=== PATIENT | female | born 1990 | race Caucasian/White ===

== ENCOUNTER 2018-11-05 10:16 | Emergency (ER) | payer BC ==
[~2018-11-05] VITALS: Ht 157.5 cm; Wt 86.2 kg
[2018-11-05 10:21] VITALS: Ht 157.5 cm; Wt 86.2 kg
[2018-11-05 13:17] VITALS: BP 111/63
== END 2018-11-05 13:17 | disposition home or self-care (01) ==
LOC: ED 10:16
DX: L03.116 Cellulitis of left lower limb (principal); F17.210 Nicotine dependence, cigarettes, uncomplicated; J45.909 Unspecified asthma, uncomplicated; Z88.6 Allergy status to analgesic agent; Z88.8 Allergy status to other drugs, medicaments and biological substances
CPT/HCPCS: J0696

== ENCOUNTER 2018-11-07 08:59 | Emergency (ER) | payer BC ==
[~2018-11-07] VITALS: Ht 157.5 cm; Wt 86.2 kg
[2018-11-07 09:13] VITALS: Ht 157.5 cm; Wt 86.2 kg
[2018-11-07 11:38] VITALS: BP 109/51
== END 2018-11-07 11:38 | disposition home or self-care (01) ==
LOC: ED 08:59
DX: L02.416 Cutaneous abscess of left lower limb (principal); L03.116 Cellulitis of left lower limb; Z88.6 Allergy status to analgesic agent; J45.909 Unspecified asthma, uncomplicated
CPT/HCPCS: J0696; J1885; J2001

== ENCOUNTER 2019-03-23 11:54 | Emergency (ER) | payer MEDICAID ==
[~2019-03-23] VITALS: Ht 157.5 cm; Wt 78.0 kg
[2019-03-23 12:13] VITALS: Ht 157.5 cm; Wt 78.0 kg
[2019-03-23 13:48] VITALS: BP 112/68
== END 2019-03-23 13:48 | disposition home or self-care (01) ==
LOC: ED 11:54
DX: L50.9 Urticaria, unspecified (principal); F17.210 Nicotine dependence, cigarettes, uncomplicated; J45.909 Unspecified asthma, uncomplicated; F31.9 Bipolar disorder, unspecified; Z76.0 Encounter for issue of repeat prescription; Z98.890 Other specified postprocedural states; Z88.6 Allergy status to analgesic agent
CPT/HCPCS: 99406

== ENCOUNTER 2019-04-04 16:16 | Emergency (ER) | payer MEDICAID ==
[~2019-04-04] VITALS: Ht 157.5 cm; Wt 81.6 kg
[2019-04-04 16:42] VITALS: Ht 157.5 cm; Wt 81.6 kg
[2019-04-04 17:59] VITALS: BP 101/69
== END 2019-04-04 17:59 | disposition other institution (70) ==
LOC: ED 16:16
DX: G89.29 Other chronic pain (principal); M54.9 Dorsalgia, unspecified; J45.909 Unspecified asthma, uncomplicated; F90.9 Attention-deficit hyperactivity disorder, unspecified type; F31.9 Bipolar disorder, unspecified; Z98.890 Other specified postprocedural states; Z88.0 Allergy status to penicillin; Z88.6 Allergy status to analgesic agent

== ENCOUNTER 2019-04-04 16:16 | Emergency (ER) | payer OTHER | END 2019-04-04 17:59 | disposition other institution (70) | LOC: ED 16:16 | DX: Z02.89 Encounter for other administrative examinations (principal) ==

== ENCOUNTER 2019-09-14 09:25 | Emergency (ER) | payer OTHER ==
[~2019-09-14] VITALS: Ht 157.5 cm; Wt 99.3 kg
[2019-09-14 09:31] VITALS: Ht 157.5 cm; Wt 99.3 kg
[2019-09-14 11:03] VITALS: BP 115/78
== END 2019-09-14 11:03 | disposition home or self-care (01) ==
LOC: ED 09:25
DX: S39.012A Strain of muscle, fascia and tendon of lower back, initial encounter (principal); Z88.0 Allergy status to penicillin; Z88.6 Allergy status to analgesic agent; Z98.890 Other specified postprocedural states; X58.XXXA Exposure to other specified factors, initial encounter; Y93.89 Activity, other specified; Y92.89 Other specified places as the place of occurrence of the external cause; Y99.8 Other external cause status